=== PATIENT | female | born 1990 | race Caucasian/White ===

== ENCOUNTER 2017-10-04 13:30 | Emergency (ER) | payer OTHER ==
[~2017-10-04] VITALS: Ht 160 cm; Wt 80.0 kg
[~2017-10-04 13:30] MED LIST: ALBU6.7H INH; PRED20 PO
[2017-10-04 13:48] VITALS: BP 138/76; PULSE 91; RESP 18; TEMP 98.4; O2SAT 98
[2017-10-04] MEDS ORDERED: SODIUM CHLOR 0.9% 1000 ML INJ 1,000 ML IV SCH (16:41)
[2017-10-04] MEDS ORDERED: MORPHINE SULFATE 4 MG/ML INJ IV PUSH ONE (16:45)
[2017-10-04] MEDS ORDERED: DEXAMETHASONE SOD PHOS 4 MG/ML VIAL IV PUSH ONE (16:45)
[2017-10-04] MEDS ORDERED: SODIUM CHLORIDE 0.9% FLUSH 10 ML FLUSH IV FLUSH PRN (16:45)
[2017-10-04] MEDS ORDERED: ORPHENADRINE INJ 60 MG/2 ML AMP IM ONE (16:45)
[2017-10-04] MEDS ORDERED: KETOROLAC TROMETHAMINE 30 MG/ML (IVP) VIAL IVP ONE (16:45)
--- NOTE | 2017-10-04 16:46 | PD ---
HPI Chief Complaint: Fall Time Seen by Provider: 16:38 Travel History International Travel<30 days: No Contact w/Intl Traveler<30days: No Traveled to known affect area: No History of Present Illness HPI 27-year-old female presents emergency department with history of twist and fall backwards the day before yesterday. Patient now is complaining of lower back pain with pain into both lower extremities, with muscle spasms in both lower extremities. Patient states she is unable to bear weight. Patient denies numbness or tingling however. Patient also denies urinary or bowel changes. Patient states not no history of this previously. Pain is 10 out of 10. She is allergic to penicillin. [facility] Past Medical History Medical History: Denies Significant Hx ?: Unknown Social History Alcohol Use: No Tobacco Use: No Substance Use: No Allergies-Medications (Allergen,Severity, Reaction): Coded Allergies: Penicillins (Verified Allergy, Severe, Anaphylaxis, 10/04/17) Reported Meds & Prescriptions Reported Meds & Active Scripts Active No Active Prescriptions or Reported Medications Review of Systems Except as stated in HPI: all other systems reviewed are Neg General / Constitutional: No: Fever Eyes: No: Visual changes HENT: No: Headaches Cardiovascular: No: Chest Pain or Discomfort Respiratory: No: Shortness of Breath Gastrointestinal: No: Abdominal Pain Genitourinary: No: Dysuria Musculoskeletal: Positive: Myalgias, Arthralgias, Limited ROM, Pain (See history of present illness) Skin: No Rash Neurologic: No: Weakness Psychiatric: No: Depression Endocrine: No: Polydipsia Hematologic/Lymphatic: No: Easy Bruising Physical Exam Exam Limitations: Clinical Condition Narrative GENERAL: Patient appears in moderate distress SKIN: Warm and dry. Normal color. Normal turgor. No rash. No signs of trauma. HEAD: Atraumatic. Normocephalic. EYES: Pupils equal and round. No scleral icterus. No injection or drainage. ENT: No nasal bleeding or discharge. Mucous membranes pink and moist. Pharynx is clear. NECK: Trachea midline. Supple and nontender. CARDIOVASCULAR: Regular rate and rhythm. RESPIRATORY: No accessory muscle use. Clear to auscultation. Breath sounds equal bilaterally. GASTROINTESTINAL: Abdomen soft, non-tender, nondistended. Hepatic and splenic margins not palpable. MUSCULOSKELETAL: Extremities without clubbing, cyanosis, or edema. No obvious deformities. Patient complains of pain with palpation to the lower lumbar spine bilaterally. Exam of the lower extremities is difficult secondary to patient's pain. I am unable to check for strength or straight leg raise pain due to the patient's complaints of pain. Neurovascular exam appears to be intact bilaterally. NEUROLOGICAL: Awake and alert. No obvious cranial nerve deficits. Motor grossly within normal limits. Five out of 5 muscle strength in the arms and legs. Normal speech. PSYCHIATRIC: Appropriate mood and affect; insight and judgment normal. Data Data Last Documented VS Vital Signs Date Time Temp Pulse Resp B/P (MAP) Pulse Ox O2 Delivery O2 Flow Rate FiO2 10/04/17 18:01 97 Room Air 10/04/17 13:48 98.4 91 18 138/76 (96) Orders Orders Basic Metabolic Panel (Bmp) (10/04/17 16:41) Complete Blood Count With Diff (10/04/17 16:41) Urinalysis - C+S If Indicated (10/04/17 16:41) Iv Access Insert/Monitor (10/04/17 16:41) Ecg Monitoring (10/04/17 16:41) Oximetry (10/04/17 16:41) Morphine Inj (Morphine Inj) (10/04/17 16:45) Sodium Chlor 0.9% 1000 Ml Inj (Ns 1000 M (10/04/17 16:41) Sodium Chloride 0.9% Flush (Ns Flush) (10/04/17 16:45) Ketorolac Inj (Toradol Inj) (10/04/17 16:45) Ed Urine Pregnancytest Poc (10/04/17 16:41) Dexamethasone Inj (Decadron Inj) (10/04/17 16:45) Orphenadrine Inj (Norflex Inj) (10/04/17 16:45) Spine, Lumbar Comp W/Obliq (10/04/17 17:09) Urine Culture (10/04/17 16:50) Ct Lumb Spine W/O Contrast (10/04/17 17:54) Humerus (Min 2vws) (10/04/17 17:54) Tibia/Fibula (Ap/Lat) (10/04/17 17:54) Pelvis, Ap Only (Routine) (10/04/17 17:54) Femur (Ap & Lat/2vws) (10/04/17 17:54) Tibia/Fibula (Ap/Lat) (10/04/17 17:54) Labs Laboratory Tests Test 10/04/17 16:50 10/04/17 17:15 10/04/17 18:50 Urine Color YELLOW Urine Turbidity HAZY Urine pH 5.5 Urine Specific [place] 1.018 Urine Protein TRACE mg/dL Urine Glucose (UA) NEG mg/dL Urine Ketones NEG mg/dL Urine Occult Blood NEG Urine Nitrite NEG Urine Bilirubin NEG Urine Urobilinogen LESS THAN 2.0 MG/DL Urine Leukocyte Esterase LARGE Urine RBC 2 /hpf Urine WBC 14 /hpf Urine Squamous Epithelial Cells 7 /hpf Urine Bacteria OCC /hpf Urine Mucus FEW /lpf Microscopic Urinalysis Comment CULTURE INDICATED Blood Urea Nitrogen 13 MG/DL Creatinine 0.75 MG/DL Random Glucose 81 MG/DL Calcium Level 8.8 MG/DL Sodium Level 139 MEQ/L Potassium Level 4.6 MEQ/L Chloride Level 107 MEQ/L Carbon Dioxide Level 23.1 MEQ/L Anion Gap 9 MEQ/L Estimat Glomerular Filtration Rate 94 ML/MIN [facility] Medical Decision Making Medical Screen Exam Complete: Yes Emergency Medical Condition: Yes Medical Record Reviewed: Yes Differential Diagnosis Lower back pain. Cauda equina syndrome. Malingering. Narrative Course Patient is medically stable although in pain at time of exam. Labs ordered including urine test. CBC, urinalysis, and BMP is ordered. IV access is obtained the patient is given 2 mg morphine IV as well as 30 mg ketorolac IV, as well as 8 mg dexamethasone IV. Patient is given Norflex 60 mg IM. Patient is given 1000 mL's normal saline. X-rays of the lumbar spine ordered. Lumbar x-rays show: Significant lumbosacral spondylolisthesis which does not appear acute. Patient is discussed with and examined with Dr. Patel. Dr. Patel recommends lower lumbar CT scan, and x-rays of both femurs and tib- fib.. CT and x-rays pending. Care of the patient is turned over to Antonio Lowe PA-C at change of shift. Scripts No Active Prescriptions or Reported Meds Condition: Stable Emilio Blakely Oct 04, 2017 16:46
[2017-10-04 17:41] LABS: AUTOMATED NEUTROPHIL # 8.3 TH/MM3 (1.8-7.7); BASOPHIL # 0.1 TH/MM3 (0-0.2); BASOPHIL % 0.9 % (0.0-2.0); EOSINOPHIL # 0.2 TH/MM3 (0-0.4); EOSINOPHIL % 1.9 % (0.0-4.0); HEMOGLOBIN 13.3 GM/DL (11.6-15.3); LYMPH % 22.4 % (9.0-44.0); LYMPHOCYTE # 2.8 TH/MM3 (1.0-4.8); MEAN CELL VOLUME 91.2 FL (80.0-100.0); MEAN PLATELET VOLUME 10.9 FL (7.0-11.0); MONO % 7.2 % (0.0-8.0); MONOCYTE # 0.9 TH/MM3 (0-0.9); NEUT % 67.6 % (16.0-70.0); RED BLOOD COUNT 4.27 MIL/MM3 (4.00-5.30); RED CELL DISTRIBUTION WIDTH 13.3 % (11.6-17.2)
--- NOTE | 2017-10-04 17:43 | RADRPT ---
EXAM DATE/TIME: 10/04/2017 17:28 [facility] COMPARISON: No previous studies available for comparison. INDICATIONS : Lower back pain and spasms after fall. MEDICAL HISTORY : None. SURGICAL HISTORY : None. ENCOUNTER: Initial ACUITY: 2 days PAIN SCORE: 9/10 LOCATION: Bilateral lower back. FINDINGS: There is grade II-III anterolisthesis of L5 relative to S1. There is mild right convex scoliosis. The re is severe loss of disc height at the lumbosacral junction with satisfactory preservation of disc h eight elsewhere. CONCLUSION: Significant lumbosacral spondylolisthesis which does not appear acute Onesimo Silva MD on October 04, 2017 at 17:40 Board Certified Radiologist. This report was verified electronically.
[2017-10-04 17:50] LABS: BACTERIA, URINE OCC /hpf; BILIRUBIN, URINE NEG (NEG); BLOOD, URINE NEG (NEG); GLUCOSE,URINE NEG (NEG); KETONE, URINE NEG (NEG); MUCUS URINE FEW /lpf (OCC); NITRITE,URINE NEG (NEG); PH, URINE 5.5 (5.0-8.5); SQUAMOUS EPITHELIAL CELL URINE 7 /hpf (0-5); URINE COLOR YELLOW (YELLW/STRAW); URINE LEUKOCYTE ESTERASE LARGE (NEG)
[2017-10-04 18:01] VITALS: O2SAT 97
[2017-10-04 18:17] LABS: BICARBONATE 23.1 MEQ/L (21.0-32.0); CALCIUM 8.8 MG/DL (8.5-10.1); CREATININE 0.75 MG/DL (0.50-1.00)
[2017-10-04 19:12] LABS: PLATELET COUNT 242 TH/MM3 (150-450); WHITE BLOOD COUNT 8.7 TH/MM3 (4.0-11.0)
--- NOTE | 2017-10-04 19:16 | RADRPT ---
EXAM DATE/TIME: 10/04/2017 18:44 [facility] COMPARISON: No previous studies available for comparison. INDICATIONS : Fall to days ago now having trouble walking RADIATION DOSE: 35.86 CTDIvol (mGy) MEDICAL HISTORY : None SURGICAL HISTORY : None. ENCOUNTER: Initial ACUITY: 2 days PAIN SCALE: 8/10 LOCATION: Lumbar TECHNIQUE: Volumetric scanning of the lumbar spine was performed. Multiplanar reconstructions in the sagittal, coronal and oblique axial planes were performed. Using automated exposure control and adjustment of the mA and/or kV according to patient size, radiation dose was kept as low as reasonably achievable t o obtain optimal diagnostic quality images. DICOM format image data is available electronically for review and comparison. FINDINGS: There is grade II-III anterolisthesis of L5 in relation to S1 measuring 14 mm. Bilateral pars defects are noted at L5. Scoliosis of the lumbar spine is noted. There is no acute compression fracture of l umbar spine. Severe bilateral foraminal narrowing is noted at L5-S1. Mild bilateral foraminal narrowi ng is noted at L4-5. Mild spinal stenosis is noted at L5-S1. CONCLUSION: 1. Grade II-III anterolisthesis of L5 in relation to S1 measuring 14 mm with bilateral pars defects a t L5. 2. Mild spinal stenosis and severe bilateral narrowing at L5-S1. 3. Mild bilateral foraminal narrowing at L4-5. 4. Scoliosis of the lumbar spine. 5. No acute compression fracture. Toni Altamirano MD on October 04, 2017 at 19:10 Board Certified Radiologist. This report was verified electronically.
[2017-10-04] MEDS ORDERED: CYCL10TA PO (19:35)
[2017-10-04] MEDS ORDERED: NORC5TAB PO (19:35)
[2017-10-04] MEDS ORDERED: DICL75TA PO (19:35)
--- NOTE | 2017-10-04 19:36 | RADRPT ---
EXAM DATE/TIME: 10/04/2017 18:30 [facility] COMPARISON: No previous studies available for comparison. INDICATIONS : Pain post fall. MEDICAL HISTORY : None. SURGICAL HISTORY : None. ENCOUNTER: Initial ACUITY: 2 days PAIN SCORE: 10/10 LOCATION: Right Femur. FINDINGS: Two view examination of the right femur demonstrates no evidence of fracture or dislocation. Bony mi neralization is normal. The soft tissue structures are intact. CONCLUSION: No acute disease. Toni Altamirano MD on October 04, 2017 at 19:34 Board Certified Radiologist. This report was verified electronically.
--- NOTE | 2017-10-04 19:36 | RADRPT ---
EXAM DATE/TIME: 10/04/2017 18:34 [facility] COMPARISON: No previous studies available for comparison. INDICATIONS : Pain post fall. MEDICAL HISTORY : None. SURGICAL HISTORY : None. ENCOUNTER: Initial ACUITY: 2 days PAIN SCORE: 8/10 LOCATION: Right Lower leg. FINDINGS: Two view examination of the right tibia demonstrates no evidence of fracture or dislocation. Bony mi neralization is normal. The soft tissue structures are intact. CONCLUSION: No acute disease. Toni Altamirano MD on October 04, 2017 at 19:35 Board Certified Radiologist. This report was verified electronically.
--- NOTE | 2017-10-04 19:37 | RADRPT ---
EXAM DATE/TIME: 10/04/2017 18:28 [facility] COMPARISON: No previous studies available for comparison. INDICATIONS : Pain post fall. MEDICAL HISTORY : None. SURGICAL HISTORY : None. ENCOUNTER: Initial ACUITY: 2 days PAIN SCORE: 8/10 LOCATION: Pelvis. FINDINGS: A single frontal view of the pelvis demonstrates no evidence of fracture. The bony pelvic ring is in tact. Bony mineralization is normal. The soft tissues are intact. Mild degenerative changes and sco liosis of the lower lumbar spine are noted. CONCLUSION: No acute fracture or dislocation. Mild degenerative changes and scoliosis of the lumb ar spine. Toni Altamirano MD on October 04, 2017 at 19:35 Board Certified Radiologist. This report was verified electronically.
--- NOTE | 2017-10-04 19:38 | RADRPT ---
EXAM DATE/TIME: 10/04/2017 18:39 [facility] COMPARISON: No previous studies available for comparison. INDICATIONS : Pain post fall. MEDICAL HISTORY : None. SURGICAL HISTORY : None. ENCOUNTER: Initial ACUITY: 2 days PAIN SCORE: 2/10 LOCATION: Left Humerus. FINDINGS: Two view examination of the left humerus demonstrates no evidence of fracture or dislocation. Bony m ineralization is normal. The soft tissue structures are intact. CONCLUSION: No acute disease. Toni Altamirano MD on October 04, 2017 at 19:37 Board Certified Radiologist. This report was verified electronically.
--- NOTE | 2017-10-04 19:38 | RADRPT ---
EXAM DATE/TIME: 10/04/2017 18:34 [facility] COMPARISON: No previous studies available for comparison. INDICATIONS : Pain post fall. MEDICAL HISTORY : None. SURGICAL HISTORY : None. ENCOUNTER: Initial ACUITY: 2 days PAIN SCORE: 8/10 LOCATION: Left Lower leg. FINDINGS: Two view examination of the left tibia demonstrates no evidence of fracture or dislocation. Bony min eralization is normal. The soft tissue structures are intact. CONCLUSION: No acute disease. Toni Altamirano MD on October 04, 2017 at 19:36 Board Certified Radiologist. This report was verified electronically.
--- NOTE | 2017-10-04 19:40 | PD ---
Physical Exam Date Seen by Provider: Oct 04, 2017 Time Seen by Provider: 19:36 Narrative GENERAL: This is a well-nourished, well-developed patient, in no apparent distress. SKIN: No rashes, ecchymoses or lesions. Warm and dry. HEAD: Atraumatic. Normocephalic. EYES: PERRL, EOMI, no discharge or injection. No scleral icterus. EARS: Clear NOSE: Nasal turbinates appear normal. THROAT: Mucosa pink and moist. Airway patent. NECK: Trachea midline. supple, moves head freely. LUNGS: Clear to auscultation. CV: Regular in rhythm. ABDOMEN: Soft nontender. EXT: No clubbing cyanosis or edema. Back: Patient has diffuse lower lumbar tenderness. There is no saddle anesthesia. She has intact sensation distally with good distal pulses. Data Data Last Documented VS Vital Signs Date Time Temp Pulse Resp B/P (MAP) Pulse Ox O2 Delivery O2 Flow Rate FiO2 10/04/17 18:01 97 Room Air 10/04/17 13:48 98.4 91 18 138/76 (96) Orders Orders Basic Metabolic Panel (Bmp) (10/04/17 16:41) Complete Blood Count With Diff (10/04/17 16:41) Urinalysis - C+S If Indicated (10/04/17 16:41) Iv Access Insert/Monitor (10/04/17 16:41) Ecg Monitoring (10/04/17 16:41) Oximetry (10/04/17 16:41) Morphine Inj (Morphine Inj) (10/04/17 16:45) Sodium Chlor 0.9% 1000 Ml Inj (Ns 1000 M (10/04/17 16:41) Sodium Chloride 0.9% Flush (Ns Flush) (10/04/17 16:45) Ketorolac Inj (Toradol Inj) (10/04/17 16:45) Ed Urine Pregnancytest Poc (10/04/17 16:41) Dexamethasone Inj (Decadron Inj) (10/04/17 16:45) Orphenadrine Inj (Norflex Inj) (10/04/17 16:45) Spine, Lumbar Comp W/Obliq (10/04/17 17:09) Urine Culture (10/04/17 16:50) Ct Lumb Spine W/O Contrast (10/04/17 17:54) Humerus (Min 2vws) (10/04/17 17:54) Tibia/Fibula (Ap/Lat) (10/04/17 17:54) Pelvis, Ap Only (Routine) (10/04/17 17:54) Femur (Ap & Lat/2vws) (10/04/17 17:54) Tibia/Fibula (Ap/Lat) (10/04/17 17:54) Ed Discharge Order (10/04/17 19:33) Labs Laboratory Tests Test 10/04/17 16:50 10/04/17 17:15 10/04/17 18:50 Urine Color YELLOW Urine Turbidity HAZY Urine pH 5.5 Urine Specific [place] 1.018 Urine Protein TRACE mg/dL Urine Glucose (UA) NEG mg/dL Urine Ketones NEG mg/dL Urine Occult Blood NEG Urine Nitrite NEG Urine Bilirubin NEG Urine Urobilinogen LESS THAN 2.0 MG/DL Urine Leukocyte Esterase LARGE Urine RBC 2 /hpf Urine WBC 14 /hpf Urine Squamous Epithelial Cells 7 /hpf Urine Bacteria OCC /hpf Urine Mucus FEW /lpf Microscopic Urinalysis Comment CULTURE INDICATED Blood Urea Nitrogen 13 MG/DL Creatinine 0.75 MG/DL Random Glucose 81 MG/DL Calcium Level 8.8 MG/DL Sodium Level 139 MEQ/L Potassium Level 4.6 MEQ/L Chloride Level 107 MEQ/L Carbon Dioxide Level 23.1 MEQ/L Anion Gap 9 MEQ/L Estimat Glomerular Filtration Rate 94 ML/MIN White Blood Count 8.7 TH/MM3 Red Blood Count 4.27 MIL/MM3 Hemoglobin 13.3 GM/DL Hematocrit 39.0 % Mean Corpuscular Volume 91.2 FL Mean Corpuscular Hemoglobin 31.0 PG Mean Corpuscular Hemoglobin Concent 34.0 % Red Cell Distribution Width 13.3 % Platelet Count 242 TH/MM3 Mean Platelet Volume 10.9 FL Neutrophils (%) (Auto) 67.6 % Lymphocytes (%) (Auto) 22.4 % Monocytes (%) (Auto) 7.2 % Eosinophils (%) (Auto) 1.9 % Basophils (%) (Auto) 0.9 % Neutrophils # (Auto) 8.3 TH/MM3 Lymphocytes # (Auto) 2.8 TH/MM3 Monocytes # (Auto) 0.9 TH/MM3 Eosinophils # (Auto) 0.2 TH/MM3 Basophils # (Auto) 0.1 TH/MM3 CBC Comment AUTO DIFF Differential Comment AUTO DIFF CONFIRMED Platelet Estimate NORMAL Platelet Morphology Comment CLUMPED MDM Medical Record Reviewed: Yes Supervised Visit with BENJAMIN: Yes Interpretation(s) Last 24 hours Impressions Lum[address] Spine CT 10/04/17 1754 Signed Impressions: Service Date/Time: October 18:44 - CONCLUSION: 1. Grade II- III anterolisthesis of L5 in relation to S1 measuring 14 mm with bilateral pars defects at L5. 2. Mild spinal stenosis and severe bilateral narrowing at L5- S1. 3. Mild bilateral foraminal narrowing at L4-5. 4. Scoliosis of the lumbar spine. 5. No acute compression fracture. Toni Altamirano MD Lumbar Spine X-Ray 10/04/17 1709 Signed Impressions: Service Date/Time: October 17:28 - CONCLUSION: Significant lumbosacral spondylolisthesis which does not appear acute Onesimo Silva MD Differential Diagnosis MDM: High Differential diagnoses: AAA,Fracture, sprain, strain, HNP, nerve or vascular injury, epidural abscess, pilonidal cyst, pyelonephritis, UTI, nephrolithiasis, ureterolithiasis Narrative Course CT scan of the lumbar spine confirms the L5-S1 pars defect. There is no acute fracture. There does not appear to be any acute cord injury. Patient has no signs of cauda equina. Patient has been given steroids, Toradol and morphine. Patient has been informed of the radiographic findings and concerns. She is aware that this needs to be followed by orthopedics and may give her problems in the future. This is back contusion, spondylolisthesis with pars defect Diagnosis Primary Impression: acute back contusion Additional Impression: Spondylolisthesis with pars defect Referrals: [facility] 3 days Patient Instructions: Narcotic given in the ED, General Instructions Additional Instruction: Rest. Ice for the next 3 days followed by lima . NORSho STACY and Gregoryareiza. Follow-up with [facility] in 3-7 days. Follow-up with an orthopedist within 1 week. Return to the ER for emergencies. Med/Other Pt SpecificInfo: Prescription(s) given Scripts Cyclobenzaprine (Flexeril) 10 Mg Tab 10 MG PO TID for Muscle Spasm, #30 TAB 0 Refills Prov: Jorge,Hung MD 10/04/[address] (Diclofenac Sodium DR) 75 Mg Tabdr 75 MG PO BID, #20 TAB 0 Refills Prov: Gigi Patel MD 10/04/17 Hydrocodone-Acetaminophen (Ono) 5 Mg-325 Mg Tab 1 TAB PO Q6H Y for PAIN for 3 Days, #12 TAB 0 Refills Prov: Gigi Patel MD 10/04/17 Disposition: 01 DISCHARGE HOME Condition: Stable Zohaib Ledbetter Oct 04, 2017 19:40
== END 2017-10-04 20:01 | disposition home or self-care (01) ==
LOC: NEPD 13:30
DX: S30.0XXA Contusion of lower back and pelvis, initial encounter (principal); M43.10 Spondylolisthesis, site unspecified; R82.71 Bacteriuria; W19.XXXA Unspecified fall, initial encounter
CPT/HCPCS: 72110; 72131; 72170; 73060; 73552; 73590; 80048; 81001; 84703; 85025; 87086; 96361; 96372; 96374; 96375; 99285; J1100; J1885; J2270; J2360; J7030

== ENCOUNTER 2017-11-21 19:03 | Observation (INO) | payer SELFPAY ==
[~2017-11-21] VITALS: Ht 157.5 cm; Wt 82.0 kg
[~2017-11-21 19:03] MED LIST changes: -ALBU6.7H INH; +CYCL10TA PO; +DICL75TA PO; +NORC5TAB PO; -PRED20 PO
[2017-11-21 19:30] VITALS: BP 131/66; PULSE 91; RESP 18; TEMP 98.9; O2SAT 98
[2017-11-21] MEDS ORDERED: SODIUM CHLORIDE 0.9% FLUSH 10 ML FLUSH IVF PRN (19:30)
[2017-11-21] MEDS ORDERED: SODIUM CHLOR 0.9% 1000 ML INJ 1,000 ML IV ONE (19:30)
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
[2017-11-21 20:19] LABS: ALT (GPT) 15 U/L (10-53)
[2017-11-21 20:22] LABS: ALKALINE PHOSPHATASE 64 U/L (45-117); TOTAL BILIRUBIN ADULT 0.2 MG/DL (0.2-1.0); TOTAL PROTEIN 7.1 GM/DL (6.4-8.2)
[2017-11-21 20:41] LABS: ALBUMIN 3.6 GM/DL (3.4-5.0); AST (GOT) 20 U/L (15-37); BLOOD UREA NITROGEN 13 MG/DL (7-18); CALCIUM 8.1 MG/DL (8.5-10.1); CHLORIDE 113 MEQ/L (98-107); CREATININE 0.84 MG/DL (0.50-1.00); GLOMERULAR FILTRATION RATE 83 ML/MIN (>89); GLUCOSE,RANDOM 97 MG/DL (74-106); SODIUM (NA) 143 MEQ/L (136-145)
[2017-11-21 20:45] VITALS: BP 118/84; PULSE 81; RESP 16; O2SAT 99
--- NOTE | 2017-11-21 21:36 | RADRPT ---
EXAM DATE/TIME: 11/21/2017 21:14 [facility] COMPARISON: No previous studies available for comparison. INDICATIONS : Syncope. RADIATION DOSE: 34.56 CTDIvol (mGy) MEDICAL HISTORY : Seizures. SURGICAL HISTORY : None. ENCOUNTER: Initial ACUITY: 1 day PAIN SCALE: 0/10 LOCATION: cranial TECHNIQUE: Multiple contiguous axial images were obtained of the head. Using automated exposure control and adj ustment of the mA and/or kV according to patient size, radiation dose was kept as low as reasonably a chievable to obtain optimal diagnostic quality images. DICOM format image data is available electro nically for review and comparison. FINDINGS: CEREBRUM: The ventricles are normal for age. No evidence of midline shift, mass lesion, hemorrhage or acute in farction. No extra-axial fluid collections are seen. POSTERIOR FOSSA: The cerebellum and brainstem are intact. The 4th ventricle is midline. The cerebellopontine angle i s unremarkable. EXTRACRANIAL: The visualized portion of the orbits is intact. SKULL: The calvaria is intact. No evidence of skull fracture. CONCLUSION: Normal examination. Onesimo Silva MD on November 21, 2017 at 21:32 Board Certified Radiologist. This report was verified electronically.
[2017-11-21 21:45] VITALS: BP 123/75; PULSE 75; RESP 16; O2SAT 98
[2017-11-21 21:52] LABS: AUTOMATED NEUTROPHIL # 10.2 TH/MM3 (1.8-7.7); BASOPHIL # 0.1 TH/MM3 (0-0.2); BASOPHIL % 0.5 % (0.0-2.0); EOSINOPHIL # 0.1 TH/MM3 (0-0.4); EOSINOPHIL % 0.8 % (0.0-4.0); HEMATOCRIT 35.8 % (35.0-46.0); HEMOGLOBIN 11.9 GM/DL (11.6-15.3); LYMPHOCYTE # 1.1 TH/MM3 (1.0-4.8); MEAN CELL VOLUME 89.6 FL (80.0-100.0); MEAN CORPUSCULAR HEMOGLOBIN 29.9 PG (27.0-34.0); MEAN CORPUSCULAR HGB CONC 33.3 % (32.0-36.0); MEAN PLATELET VOLUME 9.3 FL (7.0-11.0); MONO % 4.6 % (0.0-8.0); MONOCYTE # 0.6 TH/MM3 (0-0.9); NEUT % 85.1 % (16.0-70.0); PLATELET COUNT 267 TH/MM3 (150-450); RED BLOOD COUNT 3.99 MIL/MM3 (4.00-5.30); RED CELL DISTRIBUTION WIDTH 12.7 % (11.6-17.2); WHITE BLOOD COUNT 11.9 TH/MM3 (4.0-11.0)
[2017-11-21 21:55] LABS: BILIRUBIN, URINE NEG (NEG); BLOOD, URINE NEG (NEG); GLUCOSE,URINE NEG (NEG); KETONE, URINE NEG (NEG); MUCUS URINE FEW /lpf (OCC); NITRITE,URINE NEG (NEG); PH, URINE 5.5 (5.0-8.5); SQUAMOUS EPITHELIAL CELL URINE 2 /hpf (0-5); URINE COLOR LIGHT-YELLOW (YELLW/STRAW); URINE LEUKOCYTE ESTERASE NEG (NEG)
[2017-11-22] VITALS (7 sets, daily range): BP systolic 91–138; BP diastolic 50–77; PULSE 61–82; RESP 16–18; TEMP 97.7; O2SAT 96–99
[2017-11-22] MEDS ORDERED: SODIUM CHLORIDE 0.9% FLUSH 10 ML FLUSH IV FLUSH PRN (00:45)
[2017-11-22] MEDS ORDERED: LORazepam 2 MG/ML VIAL IV PUSH PRN (00:45)
[2017-11-22] MEDS ORDERED: ONDANSETRON HCL 4 MG/2 ML VIAL IV PUSH PRN (00:45)
[2017-11-22 04:50] LABS: AUTOMATED NEUTROPHIL # 5.3 TH/MM3 (1.8-7.7); BASOPHIL # 0.1 TH/MM3 (0-0.2); EOSINOPHIL # 0.3 TH/MM3 (0-0.4); EOSINOPHIL % 4.2 % (0.0-4.0); HEMATOCRIT 36.3 % (35.0-46.0); HEMOGLOBIN 12.1 GM/DL (11.6-15.3); LYMPH % 22.5 % (9.0-44.0); LYMPHOCYTE # 1.8 TH/MM3 (1.0-4.8); MEAN CELL VOLUME 90.2 FL (80.0-100.0); MEAN CORPUSCULAR HEMOGLOBIN 30.1 PG (27.0-34.0); MEAN CORPUSCULAR HGB CONC 33.3 % (32.0-36.0); MEAN PLATELET VOLUME 9.6 FL (7.0-11.0); MONO % 8.1 % (0.0-8.0); MONOCYTE # 0.7 TH/MM3 (0-0.9); NEUT % 64.2 % (16.0-70.0); PLATELET COUNT 247 TH/MM3 (150-450); RED BLOOD COUNT 4.03 MIL/MM3 (4.00-5.30); RED CELL DISTRIBUTION WIDTH 12.7 % (11.6-17.2); WHITE BLOOD COUNT 8.2 TH/MM3 (4.0-11.0)
[2017-11-22 05:10] LABS: BICARBONATE 25.6 MEQ/L (21.0-32.0); CALCIUM 8.3 MG/DL (8.5-10.1); CREATININE 0.77 MG/DL (0.50-1.00)
--- NOTE | 2017-11-22 08:06 | HHI.HP ---
[facility] Service [facility] Primary Care Physician No Primary Care Physician Admission Diagnosis new onset seizure Diagnoses: (1) Seizure Diagnosis: Principal Travel History International Travel<30 Days: No Contact w/Intl Traveler <30 Da: No Traveled to Known Affected Are: No History of Present Illness patient is a 27 y/o female who was brought to ER after she had a seizure.apparently she had a tonic-clonic seizure last night while she was in the car. she did bite her tongue but doesn't report any urine incontinence. she was confused after the seizure. at the time of my evaluation she was awake, alert and oriented with no complaints. she says that she had one episode of seizure last year but never had a work-up at the time. Review of Systems Constitutional: DENIES: Fever, Weight loss, Chills, Night Sweats Eyes: DENIES: Blurred vision, Diplopia, Vision loss, Double Vision Ears, nose, mouth, throat: DENIES: Tinnitus, Vertigo, Throat pain, Epistaxis Respiratory: DENIES: Apneas, Cough, Snoring, Wheezing, Hemoptysis, Sputum production, Shortness of breath Cardiovascular: DENIES: Chest pain, Palpitations, Syncope, Dyspnea on Exertion , PND, Lower Extremity Edema, Orthopnea, Claudication Gastrointestinal: DENIES: Abdominal pain, Black stools, Bloody stools, Constipation, Diarrhea, Nausea, Vomiting, Difficulty Swallowing, Anorexia Genitourinary: DENIES: Urinary frequency, Urgency, Hematuria, Dysuria Musculoskeletal: DENIES: Joint pain, Muscle aches, Stiffness, Joint Swelling Integumentary: DENIES: Rash Neurologic: COMPLAINS OF: Seizures, DENIES: Abnormal gait, Headache, Localized weakness, Paresthesias, Speech Problems, Tremor, Poor Balance Psychiatric: DENIES: Anxiety, Confusion, Mood changes, Depression, Hallucinations, Agitation, Suicidal Ideation, Homicidal Ideation, Delusions Past Family Social History Past Medical History seizure Past Surgical History knee surgery. Reported Medications none Allergies: Coded Allergies: Penicillins (Verified Allergy, Severe, Anaphylaxis, 11/21/17) Active Ordered Medications Inpatient Medications Lorazepam (Ativan Inj) 2 mg UNSCH PRN IV PUSH SEE LABEL COMMENTS; Start at 00:45 Ondansetron HCl (Zofran Inj) 4 mg Q6H PRN IV PUSH NAUSEA OR VOMITING; Start at 00:45 Sodium Chloride (NS Flush) 2 ml BID IV FLUSH ; Start 11/22/17 at 09:00 Social History no smoking, drinking or illicit drug abuse. Physical Exam Vital Signs Vital Signs Date Time Temp Pulse Resp B/P (MAP) Pulse Ox O2 Delivery O2 Flow Rate FiO2 11/22/17 06:00 61 16 94/50 (65) 96 Room Air 11/22/17 05:00 65 16 91/59 (70) 97 Room Air 11/22/17 03:00 82 16 110/57 (74) 98 Room Air 11/22/17 02:00 77 16 138/56 (83) 98 Room Air 11/21/17 21:45 75 16 123/75 (91) 98 Room Air 11/21/17 20:45 81 16 118/84 (95) 99 Room Air 11/21/17 19:30 98.9 91 18 131/66 (87) 98 Room Air Physical Exam GENERAL: This is a well-nourished, well-developed patient, in no apparent distress. SKIN: No rashes, ecchymoses or lesions. Cool and dry. HEAD: Atraumatic. Normocephalic. No temporal or scalp tenderness. EYES: Pupils equal round and reactive. Extraocular motions intact. No scleral icterus. No injection or drainage. ENT: Nose without bleeding, purulent drainage or septal hematoma. Throat without erythema, tonsillar hypertrophy or exudate. Uvula midline. Airway patent. NECK: Trachea midline. No JVD or lymphadenopathy. Supple, nontender, no meningeal signs. CARDIOVASCULAR: Regular rate and rhythm without murmurs, gallops, or rubs. RESPIRATORY: Clear to auscultation. Breath sounds equal bilaterally. No wheezes , rales, or rhonchi. GASTROINTESTINAL: Abdomen soft, non-tender, nondistended. No hepato-splenomegaly , or palpable masses. No guarding. MUSCULOSKELETAL: Extremities without clubbing, cyanosis, or edema. No joint tenderness, effusion, or edema noted. No calf tenderness. Negative Homans sign bilaterally. NEUROLOGICAL: Awake and alert. Cranial nerves II through XII intact. Motor and sensory grossly within normal limits. Five out of 5 muscle strength in all muscle groups. Normal speech. Laboratory Laboratory Tests Test 11/21/17 19:40 11/21/17 21:35 11/21/17 21:40 11/22/17 04:29 Blood Urea Nitrogen 13 12 Creatinine 0.84 0.77 Random Glucose 97 92 Total Protein 7.1 Albumin 3.6 Calcium Level 8.1 8.3 Alkaline Phosphatase 64 Aspartate Amino Transf (AST/SGOT) 20 Alanine Aminotransferase (ALT/SGPT) 15 Total Bilirubin 0.2 Sodium Level 143 145 Potassium Level 3.7 3.7 Chloride Level 113 112 Carbon Dioxide Level 22.0 25.6 Anion Gap 8 7 Estimat Glomerular Filtration Rate 83 91 Ethyl Alcohol Level LESS THAN 3 White Blood Count 11.9 8.2 Red Blood Count 3.99 4.03 Hemoglobin 11.9 12.1 Hematocrit 35.8 36.3 Mean Corpuscular Volume 89.6 90.2 Mean Corpuscular Hemoglobin 29.9 30.1 Mean Corpuscular Hemoglobin Concent 33.3 33.3 Red Cell Distribution Width 12.7 12.7 Platelet Count 267 247 Mean Platelet Volume 9.3 9.6 Neutrophils (%) (Auto) 85.1 64.2 Lymphocytes (%) (Auto) 9.0 22.5 Monocytes (%) (Auto) 4.6 8.1 Eosinophils (%) (Auto) 0.8 4.2 Basophils (%) (Auto) 0.5 1.0 Neutrophils # (Auto) 10.2 5.3 Lymphocytes # (Auto) 1.1 1.8 Monocytes # (Auto) 0.6 0.7 Eosinophils # (Auto) 0.1 0.3 Basophils # (Auto) 0.1 0.1 CBC Comment DIFF FINAL DIFF FINAL Differential Comment Urine Color LIGHT-YELLOW Urine Turbidity CLEAR Urine pH 5.5 Urine Specific Stephenson 1.021 Urine Protein TRACE Urine Glucose (UA) NEG Urine Ketones NEG Urine Occult Blood NEG Urine Nitrite NEG Urine Bilirubin NEG Urine Urobilinogen LESS THAN 2.0 Urine Leukocyte Esterase NEG Urine RBC 1 Urine WBC 3 Urine Squamous Epithelial Cells 2 Urine Mucus FEW Microscopic Urinalysis Comment Urine Opiates Screen NEG Urine Barbiturates Screen NEG Urine Amphetamines Screen NEG Urine Benzodiazepines Screen NEG Urine Cocaine Screen NEG Urine Cannabinoids Screen NEG Result Diagram: 11/22/1742811/[id number] Imaging Last Impressions Head CT 11/21/17 0000 Signed Impressions: Service Date/Time: Tuesday, November 21, 2017 21:14 - CONCLUSION: Normal examination. MD Sarah Triana VTE Risk Assessment Sarah VTE Risk Assessment: No/Low Risk (score <= 1) Chacortarini Risk Assessment Model Point Value = 1 Point Value = 2 Point Value = 3 Point Value = 5 Age 41-60 Minor surgery BMI > 25 kg/m2 Swollen legs Varicose veins or History of unexplained or recurrent spontaneous Oral contraceptives or hormone replacement Sepsis (< 1 month) Serious lung disease, including pneumonia (< 1 month) Abnormal pulmonary function Acute myocardial infarction Congestive heart failure (< 1 month) History of inflammatory bowel disease Medical patient at bed rest Age 61-74 Arthroscopic surgery Major open surgery (> 45 min) Laparoscopic surgery (> 45 min) Malignancy Confined to bed (> 72 hours) Immobilizing plaster cast Central venous access Age >= 75 History of VTE Family history of VTE Factor V Leiden Prothrombin [id number] Lupus anticoagulant Anticardiolipin antibodies Elevated serum homocysteine Heparin-induced thrombocytopenia Other congenital or acquired thrombophilia Stroke (< 1 month) Elective arthroplasty Hip, pelvis, or leg fracture Acute spinal cord injury (< 1 month) Prophylaxis Regimen Total Risk Factor Score Risk Level Prophylaxis Regimen 0-1 Low Early ambulation 2 Moderate Order ONE of the following: *Sequential Compression Device (SCD) *Heparin 5000 units SQ BID 3-4 Higher Order ONE of the following medications: *Heparin 5000 units SQ TID *Enoxaparin/Lovenox 40 mg SQ daily (WT < 150 kg, CrCl > 30 mL/min) *Enoxaparin/Lovenox 30 mg SQ daily (WT < 150 kg, CrCl > 10-29 mL/min) *Enoxaparin/Lovenox 30 mg SQ BID (WT < 150 kg, CrCl > 30 mL/min) AND/OR *Sequential Compression Device (SCD) 5 or more Highest Order ONE of the following medications: *Heparin 5000 units SQ TID (Preferred with Epidurals) *Enoxaparin/Lovenox 40 mg SQ daily (WT < 150 kg, CrCl > 30 mL/min) *Enoxaparin/Lovenox 30 mg SQ daily (WT < 150 kg, CrCl > 10-29 mL/min) *Enoxaparin/Lovenox 30 mg SQ BID (WT < 150 kg, CrCl > 30 mL/min) AND *Sequential Compression Device (SCD) Assessment and Plan Assessment and Plan A/P -seizure CT head normal- ativan prn. will check EEG and consult neurology. Discussed Condition With the patient. Marisela Kwon MD Nov 22, 2017 08:06
--- NOTE | 2017-11-22 08:53 | MB ---
cc: Matthew Cervantes MD DATE: 11/22/2017 ADDENDUM: Looking at the ER note, it appears that the patient may have had a seizure a year ago in residential so I will look into that further. If, in fact this is her second seizure, she will definitely need to get started on seizure medications. However, she had denied any history of seizure to me. Matthew Cervantes MD DJM/DL , 08:45 AM , 08:52 AM
[2017-11-22] MEDS ORDERED: SODIUM CHLORIDE 0.9% FLUSH 10 ML FLUSH IV FLUSH SCH (09:00)
--- NOTE | 2017-11-22 09:19 | MB ---
cc: Matthew Cervantes MD DATE: 11/22/2017 HISTORY OF PRESENT ILLNESS: A 27-year-old right-handed woman without major past medical history. She tells me that she has had some bulging disks in her back, which have caused her legs to spasm and tighten up and she has been using a wheelchair on and off as a result that she got from her roommate. Nevertheless, she was in the backseat of a car yesterday with her girlfriend in the front seat and she was squeezing her girlfriend's hand a little bit and then she seemed to squeeze more so and when the girlfriend looked back, she was smiling and she asked was she okay and she nodded yes and was smiling. That happened twice and then the third time as her esl instructional assistant increased, she looked back and she was shaking all over, her eyes rolled back in her head. She looked very pale and was somewhat diaphoretic. She bit her tongue, but had no incontinence and then she was confused afterwards and brought in with a grand mal seizure. She evidently vomited several times afterwards and was given some Zofran. REVIEW OF SYSTEMS: The patient denied any headache, hypertension, diabetes, hypercholesterolemia, renal, hepatic, or pulmonary disease, thyroid disease, lupus, ulcer, cancer, seizure, stroke. No odd smells tastes or dj vu. She has not woken up wet the bed or bit her tongue. No missed periods of time. No cardiac history, chest pain or palpitations or heart rhythm problems. SOCIAL HISTORY: She is not a smoker, occasionally has a drink. No drugs. Lives with a friend. FAMILY HISTORY: Negative for cancer, seizure or stroke. PAST MEDICAL HISTORY: She was seen in the ER here 10/04/2017 with a history of a twist and fall backwards the day before, complained of low back pain, muscle spasms in the legs. ALLERGIES: NOTED TO BE ALLERGIC TO PENICILLIN. PHYSICAL EXAMINATION: VITAL SIGNS: Afebrile, 72, 17, 99/58 to 138/56. Lowest blood pressure 91/59, highest 138/56. NECK: There were no carotid bruits. HEART: Regular rhythm. I did not detect a murmur. NEUROLOGIC: Pupils are equal. Visual gilbert are full. Extraocular movements intact without nystagmus. Face is symmetric with normal sensation. Tongue was midline. There is no drift. She has normal strength in the upper and lower extremities bilaterally including iliopsoas, hamstring, quad, tibialis anterior, foot inversion, eversion, toe extensors and flexors. DTRs are 1+ and symmetric in the upper extremities, 2+ symmetric at the knees, trace at the ankles bilaterally. No ankle clonus was noted. Her tone at times seems normal in the lower extremities. Other times, she seems to fight it a little bit and does not relax. She moves her legs spontaneously. Certainly, the tone at the ankles was normal bilaterally at times. Pinprick, vibratory sense and proprioception were intact throughout bilateral lower extremities and pinprick intact and normal in the upper extremities and face bilaterally. She is not ataxic on [id number]. Speech is fluent. She is not aphasic. Gait was steady. She is able to get up and walk on her own, although she does it slowly. LABORATORY DATA: CBC is normal. Urine drug screen is negative. UA is negative. Basic metabolic profile is normal. LFTs are normal. Albumin normal. CAT scan of the brain was read as negative. She had a CT of her lumbar spine that shows some DJD at the lower spine. She had a femur x-ray that was negative. Humerus x-ray that was negative. CAT scan of the brain was read as normal. Review of those films does appear to be normal. IMPRESSION: New onset seizure. PLAN: We will see what an MRI and EEG shows. Also with her saying her legs are spasming, we will check an MRI of the cervical, thoracic and lumbosacral spine and some blood work on her. I will be following her with you in the hospital. Overall, I thought she looked well, neurologically. Also, check her orthostatic blood pressures and an echo. As she was very pale when it occurred, I suppose a syncopal episode could be considered, although she did bite her tongue and was shaking all over. It sounds more like a seizure. We will have to also restrict her driving. She should not swim alone or take a bath alone and do other activities that if she was to have a seizure she could be injured. MD DIANE Kaur/THAIS , 08:42 AM , 09:18 AM
[2017-11-22 10:45] LABS: C-REACTIVE PROTEIN LESS THAN 0.29 MG/DL (0.00-0.30)
[2017-11-22 10:51] LABS: RHEUMATOID FACTOR SCREEN NEGATIVE (NEGATIVE)
[2017-11-22 11:10] LABS: FREE T4 1.19 NG/DL (0.76-1.46)
[2017-11-22] MEDS ORDERED: GADODIAMIDE PF 287 MG/ML 20 ML VIAL (for RAD MRI) IVCONTRAST ONE (11:36)
--- NOTE | 2017-11-22 11:58 | RADRPT ---
EXAM DATE/TIME: 11/22/2017 10:27 [facility] COMPARISON: CT LUMBAR SPINE W/O CONTRAST, October 04, 2017, 18:44. INDICATIONS : Back pain MEDICAL HISTORY : None. SURGICAL HISTORY : ACL repair ENCOUNTER: Initial ACUITY: 1 day PAIN SCORE: 3/10 LOCATION: back TECHNIQUE: Multiplanar multisequence MRI of the lumbar spine was performed without contrast. FINDINGS: The most caudal appearing lumbar vertebra is numbered as L5. VERTEBRAE: Homogeneous signal. Degenerative disc disease L5-S1. Grade 2 spondylolisthesis. CONUS: Normal level and configuration. T12-L1: The thecal sac has a normal diameter. No evidence of disc bulge or protrusion. The neural foramina are patent bilaterally. L1-L2: The thecal sac has a normal diameter. No evidence of disc bulge or protrusion. The neural foramina are patent bilaterally. L2-L3: The thecal sac has a normal diameter. No evidence of disc bulge or protrusion. The neural foramina are patent bilaterally. L3-L4: The thecal sac has a normal diameter. No evidence of disc bulge or protrusion. The neural foramina are patent bilaterally. L4-L5: Small moderate central protrusion abuts the ventral thecal sac. No canal stenosis. The neural forami na are patent bilaterally. L5-S1: Grade 2 spondylolisthesis. Mild broad-based disc bulge. No canal stenosis. Moderate bilateral neural frontal narrowing. Chronic pars defects with. CONCLUSION: 1. Grade 2 spondylolisthesis L5 on S1 with mild broad-based disc bulge. No canal stenosis. Chronic pa rs defects. 2. Small/moderate central protrusion L4-5 without canal stenosis. Terence Rojas MD on November 22, 2017 at 11:53 Board Certified Radiologist. This report was verified electronically.
--- NOTE | 2017-11-22 12:00 | RADRPT ---
EXAM DATE/TIME: 11/22/2017 10:27 [facility] COMPARISON: No previous studies available for comparison. INDICATIONS : Back pain. CONTRAST: 16 cc Omniscan (gadodiamide) IV MEDICAL HISTORY : None. SURGICAL HISTORY : ACL repair ENCOUNTER: Initial ACUITY: 1 day PAIN SCORE: 3/10 LOCATION: back TECHNIQUE: Multiplanar, multisequence MRI examination of the cervical spine was performed. FINDINGS: VERTEBRAE: Normal vertebral body height. Homogeneous marrow signal. Diffuse disc desiccation. ALIGNMENT: No evidence of subluxation. CORD: Normal configuration and signal. POST FOSSA: The cerebellar tonsils are normal in position. POST-CONTRAST: No abnormal areas of enhancement are seen. C2-C3: The thecal sac has a normal configuration. There is no evidence of disc herniation or spinal canal stenosis. The neural foramina are patent bilaterally. C3-C4: The thecal sac has a normal configuration. There is no evidence of disc herniation or spinal canal s tenosis. The neural foramina are patent bilaterally. C4-C5: The thecal sac has a normal configuration. There is no evidence of disc herniation or spinal canal s tenosis. Minimal uncovertebral spurring. The neural foramina are patent bilaterally. C5-C6: Small central protrusion abuts the thecal sac without canal stenosis. Uncovertebral spurring causes m ild bilateral neural femoral narrowing. C6-C7: Small central protrusion abuts the thecal sac without canal stenosis. Uncovertebral spurring causes m ild bilateral neural femoral narrowing. C7-T1: The thecal sac has a normal configuration. There is no evidence of disc herniation or spinal canal s tenosis. The neural foramina are patent bilaterally. CONCLUSION: 1. Small protrusions C5-6 and C6-7 levels. No canal stenosis. 2. Neural foraminal narrowing at C5-6 and C6-7 levels. 3. Cervical spinal cord is normal signal intensity and caliber. Terence Rojas MD on November 22, 2017 at 11:56 Board Certified Radiologist. This report was verified electronically.
--- NOTE | 2017-11-22 12:01 | RADRPT ---
EXAM DATE/TIME: 11/22/2017 10:27 [facility] COMPARISON: No previous studies available for comparison. INDICATIONS : Seizures. CONTRAST: 16 cc Omniscan (gadodiamide) IV MEDICAL HISTORY : None. SURGICAL HISTORY : acl repair ENCOUNTER: Initial ACUITY: 1 day PAIN SCORE: 3/10 LOCATION: back TECHNIQUE: Multiplanar, multisequence MRI of the brain was performed both prior to and following the administrat ion of paramagnetic contrast. FINDINGS: CEREBRUM: The ventricles are normal for age. No evidence of midline shift, mass lesion, hemorrhage or acute in farction. No extraaxial fluid collections are seen. The pituitary gland and suprasellar cistern are normal in configuration. WHITE MATTER: No significant signal abnormalities are seen in the white matter. POSTERIOR FOSSA: The cerebellum and brainstem are intact. The 4th ventricle is midline. The cerebellopontine angle is unremarkable. The cerebellar tonsils are normal in position. DIFFUSION IMAGING: No focal areas of restricted diffusion are seen. No evidence of acute infarction. EXTRACRANIAL: The visualized portions of the orbits and paranasal sinuses are unremarkable. POST-CONTRAST: Subtle enhancement is identified along the cortical surface of the occipital lobes adjacent to the pérez perior sagittal sinus. There are no associated flair or T2 abnormalities. There is no evidence of hem orrhage. This may represent partial volume averaging of cortical venous structures. No other evidence of abnormal intra-or extra-axial enhancement. CONCLUSION: 1. Questionable abnormality along the surface of the occipital lobes which may or present early corti kayla enhancement as described above. Short-term followup recommended. 2. Otherwise normal unenhanced and enhanced MRI of the brain. Jony Kiser MD on November 22, 2017 at 11:52 Board Certified Radiologist. This report was verified electronically.
--- NOTE | 2017-11-22 12:11 | RADRPT ---
EXAM DATE/TIME: 11/22/2017 10:27 [facility] COMPARISON: No previous studies available for comparison. INDICATIONS : Back pain. CONTRAST: 16 cc Omniscan (gadodiamide) IV MEDICAL HISTORY : None. SURGICAL HISTORY : acl repair ENCOUNTER: Initial ACUITY: 1 day PAIN SCORE: 3/10 LOCATION: back TECHNIQUE: Multiplanar multisequence MRI of the thoracic spine was performed. FINDINGS: VERTEBRA: Normal vertebral body height. Homogeneous marrow signal. ALIGNMENT: No anterolisthesis or retrolisthesis. CORD: Normal position and configuration. POST CONTRAST: No abnormal areas of contrast enhancement seen. T1-T2: Normal. T2-T3: The thecal sac has a normal diameter. No evidence of disc bulge or protrusion. T3-T4: The thecal sac has a normal diameter. No evidence of disc bulge or protrusion. T4-T5: The thecal sac has a normal diameter. No evidence of disc bulge or protrusion. T5-T6: The thecal sac has a normal diameter. No evidence of disc bulge or protrusion. T6-T7: The thecal sac has a normal diameter. No evidence of disc bulge or protrusion. T7-T8: The thecal sac has a normal diameter. No evidence of disc bulge or protrusion. T8-T9: The thecal sac has a normal diameter. No evidence of disc bulge or protrusion. T9-T10: The thecal sac has a normal diameter. No evidence of disc bulge or protrusion. T10-T11: The thecal sac has a normal diameter. No evidence of disc bulge or protrusion. T11-T12: The thecal sac has a normal diameter. No evidence of disc bulge or protrusion. T12-L1: The thecal sac has a normal diameter. No evidence of disc bulge or protrusion. CONCLUSION: No thoracic spine abnormality is identified. Onesimo Rivas MD on November 22, 2017 at 12:06 Board Certified Radiologist. This report was verified electronically.
--- NOTE | 2017-11-22 13:26 | EKG ---
Date Performed: 11/21/2017 Time Performed: 19:41:40 PTAGE: 27 years EKG: Sinus rhythm WITH SINUS ARRHYTHMIA NORMAL ECG NO PREVIOUS TRACING DOCTOR: Robert Mathew Interpretating Date/Time 11/22/2017 13:24:20
--- NOTE | 2017-11-22 18:38 | MG ---
cc: Maddison Lopez MD REQUESTING PHYSICIAN: Dr. Olguin. INDICATION: An EEG was obtained on this 27-year-old patient being evaluated for a seizure. DESCRIPTION: The patient is initially awake and there are mid amplitude 10-12 per second alpha rhythms posteriorly. There are beta rhythms centrally and frontally. The patient drowses and there is more widespread beta activity, lesser amounts of alpha rhythms. There are some theta rhythms as well. The tracing is symmetrical and photic stimulation showed some driving response bilaterally. Hyperventilation showed no change. INTERPRETATION: Normal awake and drowsy electroencephalogram. MD NANIE Davis/EDER , 06:28 PM , 06:37 PM
[2017-11-26 14:28] LABS: ANA PATTERN DIFFUSE
[2017-11-26 15:45] LABS: METHYLMALONIC ACID 0.15 nmol/mL (<=0.40)
== END 2017-11-22 14:34 | disposition left against medical advice (07) ==
LOC: NEPC 19:03 → NEDA 23:02 → NEDH 11-22 04:00 → NEDA 11-22 13:06
PROVIDERS: ADMIT Internal Medicine; ATTEND Internal Medicine
DX: G40.409 Other generalized epilepsy and epileptic syndromes, not intractable, without status epilepticus (principal); M54.5 Low back pain; G89.29 Other chronic pain; R55 Syncope and collapse; R11.10 Vomiting, unspecified; M62.838 Other muscle spasm; R53.1 Weakness
CPT/HCPCS: 70450; 70553; 72148; 72156; 72157; 80048; 80053; 80307; 81001; 82607; 83921; 84425; 84439; 84443; 84702; 84703; 85025; 85652; 86038; 86039; 86140; 86430; 86592; 93005; 95819; 96360; 99285; A9579; G0378; J7030